=== PATIENT | male | born 1995 | race Caucasian/White ===

== ENCOUNTER 2020-02-11 20:23 | Emergency (ER) | payer SELFPAY ==
[2020-02-11 21:01] VITALS: PULSE 95; RESP 18; TEMP 37.1; O2SAT 98
--- NOTE | 2020-02-11 21:30 | XRR_ITS ---
PROCEDURE INFORMATION: Exam: XR Right Hand Exam date and time: 02/11/2020 9:30 PM Age: 24 years old Clinical indication: Injury or trauma; Injury history: Fall onto broken glass; Initial encounter; Laceration; Right; Injury details: Lac to palm of RT hand, bleeding uncontrolled; Additional info: Trauma, ? fb TECHNIQUE: Imaging protocol: XR Right hand. Views: 3 or more views. COMPARISON: No relevant prior studies available. FINDINGS: Bones/joints: There is no acute fracture or dislocation. If symptoms persist, follow-up imaging in several days may be useful to exclude an occult fracture. No other significant acute bone or joint abnormality. Soft tissues: No visible/definite radiopaque soft tissue foreign body. XR/XR hand RT min 3V* [id number] IMPRESSION: 1. No acute fracture or dislocation. 2. No visible/definite radiopaque soft tissue foreign body.
[2020-02-11 21:40] VITALS: PULSE 68
--- NOTE | 2020-02-11 22:31 | CTR_ITS ---
PROCEDURE INFORMATION: Exam: CTA Right Upper Extremity With Contrast Exam date and time: 02/11/2020 10:44 PM Age: 24 years old Clinical indication: Injury or trauma; Fall; Initial encounter; Right; Patient HX: Fell thru a glass door - R hand (palm) laceration; Additional info: Trauma, bleeding TECHNIQUE: Imaging protocol: Computed tomographic angiography of the Right upper extremity with intravenous contrast material, including non-contrast images if performed. 3D rendering: MIP and/or 3D reconstructed images were created by the technologist. Radiation optimization: All CT scans at this facility use at least one of these dose optimization techniques: automated exposure control; mA and/or kV adjustment per patient size (includes targeted exams where dose is matched to clinical indication); or iterative reconstruction. Contrast material: OMNI 350; Contrast volume: 95 ml; Contrast route: 18G; COMPARISON: CR ([facility], ) 02/11/2020 9:28 PM RADIATION DOSE METRICS: Total DLP: 117.98 mGy-cm FINDINGS: Right radial artery: No acute findings. No occlusion or significant stenosis. Right ulnar artery: No acute findings. No occlusion or significant stenosis. Soft tissues: There is an ovoid soft tissue attenuation nodularity seen in the palmar subcutaneous tissues superficial to the deep flexor tendons measuring 11 x 13 x 15 mm. Although this may represent a incidental benign granuloma, a small hematoma cannot be excluded in view the patient's traumatic history. There is a punctate hyperdensity seen within the soft tissue attenuation nodularity. There are some strandy opacity seen in the subcutaneous tissues of the palmar aspect of the right hand and some gas densities are seen within the fascial plane surrounding the long flexor tendons secondary to the reported laceration. There is no evidence for foreign bodies. [place] [id number] IMPRESSION: 1. Some subcutaneous stranding and gas densities are seen in the palmar aspect of the right hand and within the fascial planes surrounding the long flexor tendons in this patient with a clinical history of lacerations. No definite foreign bodies are seen. 2. There is an ovoid soft tissue attenuation density seen in the subcutaneous tissues of the palmar aspect of the right hand. Although this could represent an incidental finding of a benign granuloma, a small hematoma cannot be excluded in view of the patient's clinical history. A punctate hyperdensity is seen within the soft tissue density. Radiation Dose CTDIVOL = (mGy): DLP = 117.98 (mGy-cm)
[2020-02-11 22:45] VITALS: BP 132/78; PULSE 68; RESP 16; O2SAT 99
[2020-02-11] MEDS: iohexol 350 mg/mL 100 mL Btl IV (23:23)
[2020-02-12 01:38] VITALS: BP 128/72; PULSE 82; RESP 16; O2SAT 98
--- NOTE | 2020-02-12 03:52 | W.ED.EXTPRO ---
HPI - Extremity Problem General: Chief complaint: Extremity Injury, Upper Stated complaint: right hand lac Time Seen by Provider: 02/11/20 21:04 History of Present Illness: HPI Narrative: 24-year-old male who evidently fell and his right hand went through a pane of glass. He had significant bleeding at home, and continues to bleed in the ER. He has a laceration to his right palmar hand, a small laceration to the dorsum MD Complaint: extremity pain Onset (ago): hour(s) Pain Consistency: constant Location: right Quality: stabbing and aching Radiation: none Relieving factors: nothing Exacerbating factors: nothing Associated symptoms: Deny chest pain, fever(s) or rash Review of Systems Const: Denies: fever(s) or chills Eyes: Denies: change in vision or blurry vision ENMT: Denies: swelling of lips/tongue, change in hearing or sinus pain Card: Denies: chest pain, palpitations or irregular heart rhythm Resp: Denies: dyspnea, productive cough, non-productive cough or wheezing GI: Denies: abdominal pain, nausea or vomiting : Denies: difficulty urinating Musc: Denies: neck pain or back pain Skin/Breast: Denies: rash, pruritus or erythema Neuro: Denies: headache(s), dizziness or vertigo Psych: Denies: anxiety PFSH ED PFSH: Social History Smoking and tobacco status: never smoked Physical Exam Const: GENERAL APPEARANCE: well developed ORIENTATION/CONSCIOUSNESS: Yes oriented to person, Yes oriented to place and Yes oriented to time HENMT: COMMON NORMALS: normocephalic, external ears normal and Normal external nose present HEAD & SCALP: normocephalic FACE & SINUS: normal facial exam NOSE: Normal external nose present and No nasal discharge present EXTERNAL EAR: Yes external ears normal MOUTH: tongue normal TEETH & GINGIVA: no abnormal tooth and associated gingiva THROAT: posterior oropharynx normal; no peritonsillar mass Eye: COMMON NORMALS: Equal, round and reactive pupils present and EOMs intact bilaterally EYELID: eyelids normal PUPIL: Yes Equal, round and reactive pupils present Neck/C-Spine: GENERAL: No tracheal deviation Chest: COMMONS NORMALS: normal inspection of the chest CHEST: No tenderness Resp: COMMON NORMALS: clear to auscultation bilaterally EFFORT & INSPECTION: No tachypneic, No respiratory distress, No retractions, No uses accessory muscles and No tracheal deviation AUSCULTATION: clear to auscultation bilaterally, no rhonchi, no wheezes and lung sounds not diminished Cardio: COMMON NORMALS: regular rate and regular rhythm RATE: regular rate RHYTHM: regular rhythm HEART SOUNDS: no murmurs PERIPHERAL PULSES: radial pulses present GI: INSPECTION: No abdominal distension AUSCULTATION: No Hyperactive bowel sounds present and No Hypoactive bowel sounds present PERCUSSION: no dullness to percussion and no tympanic to percussion Extremity: NARRATIVE EXTREMITY EXAM: 2 cm laceration to the palmar right hand. Deep. No visible tendon laceration. All flexion is intact. No extreme pain on full extension active bleeding is present. Small laceration to the dorsum of the hand bleeding controlled. Neuro: SENSORIUM/ORIENTATION: Yes oriented to person, Yes oriented to place and Yes oriented to time Psych: COMMON NORMALS: mental status grossly normal Skin: COMMON NORMALS: no rashes or lesions noted GENERAL SKIN EXAM: no rashes or lesions noted Procedures Laceration Laceration 1: Site: hand Side (If applicable): right Size (cm): 2 Description: linear Depth: simple, single layer Local Anesthetic: lidocaine 1% and with epi Amount of anesthesia used (mL): 5 Skin layer closed with: nylon Size (cm): 4-0 Number of sutures: 4 Technique: simple, interrupted Course Vital Signs: Vital signs: Vital Signs Temperature 98.7 F 02/11/20 21:01 Pulse Rate 82 02/12/20 01:38 Respiratory Rate 16 02/12/20 01:38 Blood Pressure 128/72 02/12/20 01:38 Pulse Oximetry 98 02/12/20 01:38 MDM - Extremity (Nontraumatic) MDM Narrative: Medical decision making narrative: X-ray did not reveal a bony injury. Blood pressure cuff blown up on the right side to tamponade bleeding. Suture placed in the subcutaneous tissues to slow bleeding. Skin closed. No active bleeding was present by exam. Tendon function still intact. Because of the amount of bleeding and the difficulty controlling it, CTA was ordered. No definite extravasation of contrast, although there was a small deep hematoma. There is no increased swelling on his discharge. The patient can fully extend fingers without excruciating pain. He will continue to monitor at home. Discharge Plan Discharge Patient Disposition: Home, Self-Care Clinical Impression: Laceration of hand Qualifiers: Encounter type: initial encounter Foreign body presence: without foreign body Laterality: right Qualified Code(s): S61.411A - Laceration without foreign body of right hand, initial encounter Condition: Stable Prescriptions: New Keflex 500 mg capsule 500 mg PO Q6H 5 Days Qty: 20 RF: 0 [place] 5-325 mg tablet 1 tab PO QID PRN (Reason: pain) Qty: 10 RF: 0 Discharge Orders: Discharge Order (Routine); Ordered 02/12/20 Ordered By: Thuan Grier Discharge Diet: Usual diet Discharge Activity: Limit activity as instructed Patient Instructions: Laceration (ED) Activity Restrictions/Additional Instructions: Return to the emergency department for significant swelling, severe pain with attempted flexion or passive extension or straightening of the fingers despite treatment, drainage of the wound, streaking redness, fever, other concerning symptoms. You may ice. Wash the wound with soap and running water. Do not soak. Sutures to be removed in 7 to 10 days. Antibiotics as directed Discharge Date/Time: 02/12/20 01:39 Coding Level of Care Code ED Senior Ssis Developer for Angelita Fwimani Exam Comprehensive
== END 2020-02-12 01:39 | disposition home or self-care (01) ==
PROVIDERS: Emergency Provider Emergency Medicine
DX: S61.411A Laceration without foreign body of right hand, initial encounter (principal); W01.110A Fall on same level from slipping, tripping and stumbling with subsequent striking against sharp glass, initial encounter
CPT/HCPCS: 12001; 12345; 73130; 73206; 99283; J2001; Q9967